=== PATIENT | female | born 2000 | race Two or more races ===

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

== ENCOUNTER 2024-11-24 15:24 | Emergency (ER) | payer OTHER ==
[~2024-11-24] VITALS: Ht 162.6 cm; Wt 54.4 kg
[2024-11-24] MEDS ORDERED: ACETAMINOPHEN 500 MG GEL..CAP PO ONE (16:49)
[2024-11-24 19:55] LABS: HEMATOCRIT 39.6 % (36.0-45.00); HEMOGLOBIN 13.3 g/dL (12.0-15.00); MEAN CELL VOLUME 89.7 fL (80.00-100.00); MEAN CORPUSCULAR HEMOGLOBIN 30.2 pg (27.00-32.0); MEAN CORPUSCULAR HGB CONC 33.6 g/dl (32.0-36.0); PLATELET COUNT 176 K/uL (150-450); RED BLOOD COUNT 4.42 M/uL (4.00-6.00)
[2024-11-24] MEDS ORDERED: GILTUSS COUGH-118 M1 PO (21:22)
[2024-11-24] MEDS ORDERED: OSEL75CA PO (21:22)
== END 2024-11-24 21:52 | disposition home or self-care (01) ==
LOC: ER 15:26
PROVIDERS: Preventive Medicine Public Health & General Preventive Medicine
DX: J10.1 Influenza due to other identified influenza virus with other respiratory manifestations (principal); Z20.822 Contact with and (suspected) exposure to COVID-19